=== PATIENT | male | born 1970 | race Two or more races ===

== ENCOUNTER 2016-11-06 01:43 | Emergency (ER) | payer MEDICAID ==
[~2016-11-06] VITALS: Ht 177.8 cm; Wt 99.8 kg
[2016-11-06 03:53] VITALS: BP 126/88
== END 2016-11-06 05:13 | disposition home or self-care (01) ==
LOC: ER 01:46
DX: J40 Bronchitis, not specified as acute or chronic (principal); R50.9 Fever, unspecified; R09.81 Nasal congestion

== ENCOUNTER 2016-12-06 13:19 | Emergency (ER) | payer MEDICAID ==
[~2016-12-06] VITALS: Ht 177.8 cm; Wt 99.8 kg
[2016-12-06 13:27] VITALS: BP 129/98
[2016-12-06] MEDS ORDERED: KETOROLAC TROMETH 60MG/2ML VIAL IM ONE (15:30)
== END 2016-12-06 15:54 | disposition home or self-care (01) ==
LOC: ER 13:27
DX: S39.012A Strain of muscle, fascia and tendon of lower back, initial encounter (principal); X50.9XXA Other and unspecified overexertion or strenuous movements or postures, initial encounter; Y93.89 Activity, other specified; Y99.8 Other external cause status; Y92.89 Other specified places as the place of occurrence of the external cause
CPT/HCPCS: 96372; 99283; J1885

== ENCOUNTER 2019-11-11 04:29 | Emergency (ER) | payer MEDICAID ==
[~2019-11-11] VITALS: Ht 177.8 cm; Wt 108.9 kg
[2019-11-11 06:48] LABS: Basophils # (auto) 0 uL; Basophils % (auto) 0.6 % (0.0-2.0); Eosinophils # (auto) 0.1 uL; Eosinophils % (auto) 1.3 % (0.0-7.0); Hematocrit 50.6 % (41.0-53.0); Lymphocytes # (auto) 1.4 uL; Lymphocytes % (auto) 19.3 % (10.0-50.0); Mean Corpuscular Hemoglobin 30.7 pg (28.0-32.0); Mean Corpuscular Hgb Conc. 33.5 g/dL (32.0-36.0); Mean Corpuscular Volume 91.5 fL (80.0-100.0); Monocytes # (auto) 0.4 uL; Monocytes % (auto) 5.8 % (0.0-12.0); Neutrophils # (auto) 5.3 uL; Nucleated Red Blood Cells % 0.1 %; Platelet Count (auto) 255 10^3/uL (140-450); Red Blood Cells 5.53 10^6/uL (4.5-5.90); White Blood Cell 7.3 10^3/uL (4.4-10.8)
[2019-11-11 07:06] LABS: Albumin 4.1 g/dL (3.4-5.0); Calcium 9.5 mg/dL (8.5-10.1); Potassium 3.7 mmol/L (3.5-5.1)
[2019-11-11 07:21] LABS: BUN/Creatinine Ratio 9.4; Bilirubin, Total 1.1 mg/dL (0.2-1.0); Total Protein 8.2 g/dL (6.4-8.2)
[2019-11-11 09:49] LABS: Urine Amorphous Crystal FEW /hpf (None Seen); Urine Bacteria NONE SEEN /hpf (None Seen); Urine Blood Negative /uL (Negative); Urine Mucus FEW (None Seen); Urine WBC 27 /hpf (0 - 3)
[2019-11-11 10:39] VITALS: BP 120/85
== END 2019-11-11 12:14 | disposition home or self-care (01) ==
LOC: ER 04:29
DX: R07.89 Other chest pain (principal); F41.9 Anxiety disorder, unspecified; N39.0 Urinary tract infection, site not specified
CPT/HCPCS: 36415; 71045; 80053; 81001; 83880; 84484; 85025; 85379; 93005

== ENCOUNTER 2020-07-24 13:46 | Emergency (ER) | payer MEDICAID ==
[~2020-07-24] VITALS: Ht 177.8 cm; Wt 99.8 kg
[2020-07-24 13:57] VITALS: BP 128/76
[2020-07-24] MEDS ORDERED: LIDOCAINE 1% HCL (LOCAL ANESTH.) INJ 20ML MDV ONE (15:27)
[2020-07-24] MEDS ORDERED: cefTRIAXone SOD 1,000 MG VL IM ONE (15:30)
== END 2020-07-24 15:37 | disposition home or self-care (01) ==
LOC: ER 13:46
DX: S70.361A Insect bite (nonvenomous), right thigh, initial encounter (principal); L03.115 Cellulitis of right lower limb; W57.XXXA Bitten or stung by nonvenomous insect and other nonvenomous arthropods, initial encounter; Y93.89 Activity, other specified; Y92.89 Other specified places as the place of occurrence of the external cause; Y99.8 Other external cause status
CPT/HCPCS: 96372; 99283; J0696; J2001

== ENCOUNTER 2020-07-27 16:11 | Emergency (ER) | payer MEDICAID ==
[~2020-07-27] VITALS: Ht 177.8 cm; Wt 99.8 kg
[2020-07-27 16:25] VITALS: BP 142/80
[2020-07-27] MEDS ORDERED: cefTRIAXone 1GM/50ML D5W 50 ML IV ONE ×2 (17:00)
[2020-07-27] MEDS ORDERED: KETOROLAC TROMETH 30 MG/ML 1ML VIAL IV ONE (17:00)
== END 2020-07-27 18:18 | disposition home or self-care (01) ==
LOC: ER 16:11
DX: T14.8XXA Other injury of unspecified body region, initial encounter (principal); L03.115 Cellulitis of right lower limb; X58.XXXA Exposure to other specified factors, initial encounter
CPT/HCPCS: 96365; 96375; 99284; J0696; J1885

== ENCOUNTER 2020-07-29 17:23 | Emergency (ER) | payer MEDICAID ==
[~2020-07-29] VITALS: Ht 177.8 cm; Wt 99.8 kg
[2020-07-29 17:32] VITALS: BP 156/86
== END 2020-07-29 18:54 | disposition home or self-care (01) ==
LOC: ER 17:23
DX: L02.415 Cutaneous abscess of right lower limb (principal)